=== PATIENT | male | born 1985 | race Two or more races ===

== ENCOUNTER → 2023-09-20 09:43 | Outpatient (BNVA) | payer OTHER, SELFPAY | PROVIDERS: Visit Provider Internal Medicine | DX: S39.012A Strain of muscle, fascia and tendon of lower back, initial encounter (principal); X50.0XXA Overexertion from strenuous movement or load, initial encounter | CPT/HCPCS: 99203 ==

== ENCOUNTER → 2023-09-24 13:14 | Outpatient (BNVA) | payer OTHER, SELFPAY | PROVIDERS: Visit Provider Physician Assistant | DX: S39.012A Strain of muscle, fascia and tendon of lower back, initial encounter (principal); X50.0XXA Overexertion from strenuous movement or load, initial encounter | CPT/HCPCS: 99214 ==

== ENCOUNTER → 2023-10-03 13:25 | Outpatient (BNVA) | payer OTHER, SELFPAY | PROVIDERS: Visit Provider Physician Assistant | DX: S39.012D Strain of muscle, fascia and tendon of lower back, subsequent encounter (principal); X50.0XXD Overexertion from strenuous movement or load, subsequent encounter | CPT/HCPCS: 99213 ==

== ENCOUNTER → 2024-07-21 11:22 | Outpatient (BNVA) | payer OTHER, SELFPAY | PROVIDERS: Visit Provider Physician Assistant Medical | DX: S39.012A Strain of muscle, fascia and tendon of lower back, initial encounter (principal); S33.6XXA Sprain of sacroiliac joint, initial encounter; X50.3XXA Overexertion from repetitive movements, initial encounter | CPT/HCPCS: 99203 ==

== ENCOUNTER → 2024-07-24 11:57 | Outpatient (BNVA) | payer OTHER, SELFPAY | PROVIDERS: Visit Provider Physician Assistant | DX: S39.012A Strain of muscle, fascia and tendon of lower back, initial encounter (principal); X50.3XXA Overexertion from repetitive movements, initial encounter; Z02.79 Encounter for issue of other medical certificate | CPT/HCPCS: 99213 ==

== ENCOUNTER → 2024-12-03 13:41 | Outpatient (BNVA) | payer OTHER, SELFPAY | PROVIDERS: Visit Provider Physician Assistant Medical | DX: G56.01 Carpal tunnel syndrome, right upper limb (principal) | CPT/HCPCS: 29125; 99203 ==

== ENCOUNTER → 2024-12-11 14:20 | Outpatient (BNVA) | payer OTHER, SELFPAY | PROVIDERS: Visit Provider Physician Assistant | DX: G56.01 Carpal tunnel syndrome, right upper limb (principal) | CPT/HCPCS: 99213 ==

== ENCOUNTER → 2024-12-25 14:18 | Outpatient (BNVA) | payer OTHER, SELFPAY | PROVIDERS: Visit Provider Physician Assistant | DX: G56.01 Carpal tunnel syndrome, right upper limb (principal) | CPT/HCPCS: 99214 ==

== ENCOUNTER 2025-01-06 14:00 | Outpatient (AMB) | payer OTHER, SELFPAY ==
--- NOTE | 2025-01-06 14:08 | MHC.OFFVIS ---
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 Patient reports a work injury on 12/03/24 - He reports pain, numbness and tingling in the right wrist that radiates up the arm and fingers. He was seen at the work connection for his symptoms where he was given naproxen, velcro wrist brace and was placed on light duty. Declined OT. 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 He has been wearing a velcro wrist brace for about 1 month now - this is helping him with his pain, but the pain and numbness resumes when the brace is taken off. He is at work right now on light duty with no use of the right arm. He is doing home exercies but continues to have stiffness. 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 Patient reports a work injury on 12/03/24 - He reports pain, numbness and tingling in the right wrist that radiates up the arm and fingers. He was seen at the work connection for his symptoms where he was given naproxen, velcro wrist brace and was placed on light duty. Declined OT. 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 He has been wearing a velcro wrist brace for about 1 month now - this is helping him with his pain, but the pain and numbness resumes when the brace is taken off. He is at work right now on light duty with no use of the right arm. He is doing home exercies but continues to have stiffness. [facility] Social History (Updated 01/06/25 @ 14:20 by Anna Marie Goss CMA) Current occupational status: employed Current occupation: Construction Review of Systems Const All systems reviewed & are unremarkable except as noted in HPI and below Physical Exam Extrem Other: Neuro: Normal sensation of the tips of all digits of bilateral hands in the office today No thenar or intrinsic wasting. Good APB muscle firing and good finger cross. Vascular: Capillary refill brisk. ROM: Patient can make a fist and extend all their digits. Patient does have full and intact range of motion of the left hand, however does report some discomfort in the wrist with resisted extension and passive flexion Skin: No lacerations or abrasions noted. General: No ecchymosis. No erythema or evidence of infection. [] Assessment & Plan Assessment & Plan (1) Stiffness of left hand joint: Code(s): M25.642 - Stiffness of left hand, not elsewhere classified Category: Medical (2) Numbness and tingling of left hand: Code(s): R20.0 - Anesthesia of skin; R20.2 - Paresthesia of skin Category: Medical Plan 1. Stiffness of left hand Patient is educated about this condition Patient is educated about the typical treatment course OT ordered for range of motion and strengthening of the left hand and wrist Patient is amenable to this plan Numbness and tingling of right hand Symptoms intermittent, daily, worse at night EMG and nerve conduction study ordered to assess the health of the nerves of the right upper extremity Patient will follow-up after EMG and nerve conduction study for results review and discussion of further treatment if indicated Patient is amenable to this plan Orders: Orders OT Evaluation and Treatment 01/06/25 M25.642 - Stiffness of left hand, not elsewhere classified, R20.0 - Anesthesia of skin, R20.2 - Paresthesia of skin NE electromyogram (EMG) 01/06/25 R20.0 - Anesthesia of skin, R20.2 - Paresthesia of skin NE nerve conduction velocity 01/06/25 R20.0 - Anesthesia of skin, R20.2 - Paresthesia of skin Coding Level of Care Code New Pt Level 3 (07236) Diagnoses Stiffness of left hand joint M25.642 Numbness and tingling of left hand R20.0; R20.2
== END 2025-01-06 14:39 | disposition home or self-care (01) ==
LOC: HO.HOS 14:01
DX: M25.642 Stiffness of left hand, not elsewhere classified (principal); R20.0 Anesthesia of skin; R20.2 Paresthesia of skin
CPT/HCPCS: 99203

== ENCOUNTER → 2025-01-06 14:00 | Outpatient (BNVA) | payer OTHER, SELFPAY | DX: M25.462 Effusion, left knee (principal); R20.0 Anesthesia of skin; R20.2 Paresthesia of skin | CPT/HCPCS: 99202 ==

== ENCOUNTER → 2025-01-08 14:14 | Outpatient (BNVA) | payer OTHER, SELFPAY | PROVIDERS: Visit Provider Physician Assistant | DX: G56.01 Carpal tunnel syndrome, right upper limb (principal) | CPT/HCPCS: 99213 ==

== ENCOUNTER 2025-02-18 15:32 | Outpatient (RCR) | payer OTHER, SELFPAY ==
--- NOTE | 2025-01-15 14:09 | MHC.OT.OEV ---
[address] [phone] F: [phone] Occupational Therapy Evaluation Patient Name: Marietta Payne Diagnosis: (R)wrist pain Date of Onset: Date of Surgery: Attending Provider: Momo Jin Prescribed Treatment: Follow Up Appointment: History of Current Condition: Patient is a 39 y/o Persian speaking (L)handed male with no significant PMHx to report who was referred to skilled OT for (R)wrist pain. Patient reported pain of the (R) wrist with no mechanism of injury. He stated he was at work and his hand became very painful and swollen. He showed his co-workers and he left work. He was seen by WC a was provided with wrist brace (has been wearing the brace of a month). He was then seen by Momo SANCHEZ who referred him to OT. He stats he has pain on the ulnar side of the wrist, middle of the volar wrist, RF and SF with numbness/tingling that is constant. He reports the pain as a 7/10 pain at rest and 10/10 during activity. He has a nerve conduction study scheduled for 02/09. He lives with and 4 children and reports his PLOF as (I)ADLs/IADls. 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 At this time he reports he is not able to use his hand it at all. He states he has no hobbies Significant Medical History: Precautions/Contraindications: Patient Goals: Hand Dominance: Left Observations: QuickDASH Score: Prior Level of Function and Occupation Self Care, Employment, Leisure: Works time clock repairer in construction (I)ADLS/ IADLs no hobbies Living Situation, Family and/or Social Support: lives with and 4 children Current Level of Function and Occupation Self Care, Employment, Leisure: mod (A)ADLs/IADLS Sleep: wakes because of the pain. Driving: is ok Vision: Balance: Pain Assessment Pain Score: 0 Pain Scale Used: Pain Location and Description: 7/10 at rest 10/10 during movement Aggravating Factors: Alleviating Factors: Naproxen Skin and Soft Tissue Assessment Skin and Soft Tissue: Comments: Skin intact No edema present at this time Observed mild muscle wasting of the radial side of dorsum of hand Nerve assessment Ulnar Nerve: Median Nerve: Radial Nerve: Comments: Sensory Assessment Temperature: Light Touch: Proprioception: Vibration: Comments: Edema Assessment Upper Extremity: Lower Extremity: Comments: Dexterity Assessment Dexterity: Comments: Special Tests Comments: (+)Carpal Tunnel (+)Wartenberg's sign (-)Froment's sign (+)Tineal's sing at the ulna styloid AROM(PROM) Strength Cervical Cervical Flexion: Cervical Extension: Cervical Lateral Flexion: Cervical Rotation: Comments: Shoulder Flexion: Extension: Abduction: Internal Rotation: External Rotation: Comments: Flexion: Extension: Abduction: Internal Rotation: External Rotation: Comments: Elbow Flexion: Extension: Pronation: Supination: Comments: Flexion: Extension: Pronation: Supination: Comments: Wrist Flexion: 75 Extension: 50 Ulnar Deviation: 35 Radial Deviation: 8 Comments: Flexion: Extension: Ulnar Deviation: Radial Deviation: Comments: Thumb Thumb CMC Flexion: Thumb MCP Flexion: Thumb IP Flexion: Radial Abduction: Palmar Abduction: Almond (Kapandji 0-10): 10 Comments: Painful when performing opposition Digits Index MCP: PIP: DIP: Long MCP: PIP: DIP: Ring MCP: PIP: DIP: Small MCP: PIP: DIP: Comments: WFLs- patient reports pain when making a fist Gross Grasp: (R)58lbs. (L)100lbs. Lateral Pinch: Two-Point Pinch: Three-Jaw Tripp: Comments: Patient Education Primary Language: Persian Senior Microsoft Net Developer Required: No Current Knowledge: Understands information with skills for self-management Teaching Method: Verbal Education Needs Identified on Evaluation: ADL's Equipment Use Exercise Pain How did patient/family demonstrate learning? Patient demonstrates Patient verbalizes Barriers to Learning: None Readiness for Learning: Accepting Who was educated? Patient Comments: Plan of Care Assessment: Based on initial OT evaluation patient presents with impaired strength, impaired ROM, numbness/tingling, pain, and impaired performance during self care tasks. Provocative testing revealed (+) Carpal Tunnel, (+)Wartenberg's sign, and (+)Tineal's sign at the ulna styloid. He indicating pain and numbness/tingling of the ulnar side of the wrist and hand. There also was noted muscle wasting of the dorsum of the hand near the thumb. The provocative testing, location of pain and observed muscle wasting may be indicating of Ulnar Tunnel Syndrome and will be treated accordingly; OT will continue to asses with on going sessions. Quick DASH= 81.8% indicating patients perceived impairment of UE during self care tasks. Due to the documented impairments it is recommended that patient receive skilled OT intervention in order for patient to achieve his PLOF. Thank you for your referral. STG Duration: 2 weeks Short Term Goals: Patient will report 8/10 pain in (R)wrist Patient will be (I)with wear schedule of orthosis Patent increase (R) RD to 18* Patient will increase (R)outpatient interviewing clerk strength to 65lbs. LTG Duration: 4 weeks Mcfp Goals: Patient will report 1/10 pain in (R)wrist Patient will be have RD WFLs Patient will decrease Quick DASH score to 40% or less Patient will be (I) with HEP Frequency and Duration: The patient will be seen 2x a week for 4 weeks Treatment Plan: Therapeutic Exercise Therapeutic Activity Home Exercise Program Splinting Neuro Re-ed Patient Education Desensitization/Sensory Re-ed Edema Control ADL Training Ultrasound NMES Iontophoresis Paraffin Fluidotherapy MHP Cold Packs Joint Mobilization Soft Tissue Mobilization Kinesiotaping Other (see comments) Skilled OT eval and treat Electronically Signed By: Nya Sanchez OTYessica/L, CLT Reviewed/agree with student documentation: Therapist: Please sign and return to therapist, Thank you for your referral.
--- NOTE | 2025-02-18 16:12 | MHC.OT.DC ---
[facility] Office [address] [phone] F: [phone] F: [phone] Occupational Therapy Discharge Note Patient Name: Marietta Payne Provider: Momo Jin Diagnosis: (R)wrist pain Date of Surgery: Date of Evaluation: 01/14/25 Date of Discharge: Treatments to Date: 7 Cancellations to Date: No Shows to Date: Discharge Status: Discharge Summary: Patient is d/c'd as patient has plateaued during as he reports continued pain and numbness. He has a nerve conduction test scheduled for next month. Patient will be re assessed by physician and should he require further OT intervention he will contact [facility]. Thank you for your referral. Electronically Signed By: DAY Warner/Lennox, TRACEYT Reviewed/agree with student documentation: Therapist: Please Sign and return to therapist, thank you for your referral.
== END 2025-02-18 16:13 | disposition home or self-care (01) ==
LOC: HO.OT 15:32
DX: M25.642 Stiffness of left hand, not elsewhere classified (principal); R20.0 Anesthesia of skin; R20.2 Paresthesia of skin
CPT/HCPCS: 97110; 97112; 97165; 97535

== ENCOUNTER 2025-03-25 08:54 | Outpatient (REF) | payer OTHER, SELFPAY ==
--- OUTSIDE RECORDS SUMMARY | 2025-03-25 09:36 | XMS_ITS | Clinical Summary ---
Author Organization [facility] Address [address] [place] [address] Care Team Providers Care Dehydrogenation Converter Helper Name Role Phone Unavailable Primary Care Provider Unavailabl e Encounters Date Type Department Care Team Description 01/19/2025 Population Health Risk Score [facility] (C3) Department [address] [place] [id number] Provider, Population Health Generic from Last 3 Months Social History Tobacco Use Types Packs/Day Years Used Date Smoking Tobacco: Never Assessed Sex and Gender Information Value Date Recorded Sex Assigned at Not on file Legal Sex Male 9:24 PM EDT Gender Identity Not on file Sexual Orientation Not on file Plan of Treatment Health Maintenance Due Date Last Done Comments Depression Screening 1983 HIV Screening 1983 Lipid Panel 1983 SDOH Screening 1983 Disability Screening 1983 Alcohol/Substance Use Screening 1995 Tobacco Screening 1995 Family Planning (PISQ) 10/03/1998 HPV Vaccines (1 - Male 3-dos e series) 10/03/1998 Hepatitis C Screening 10/03/2001 DTaP/Tdap/Td Vaccines (1 - Tdap) 10/03/2002 Hepatitis B Vaccines (1 of 3 - 19+ 3-dose series) 10/03/2002 COVID-19 Vaccine (1 - 2023-2 5 season) 2025 Influenza Vaccine (#1) 2025 Zoster Vaccines (1 of 2) 10/03/2033 RSV Patients and Pa tients Aged 60 years or older (1 - 1-dose 75+ series) 10/03/2058 HIB Vaccines Aged Out No longer eligi ble based on patient's age to complete this topic Hepatitis A Vaccines Aged Out No long er eligible based on patient's age to complete this topic IPV Vaccines Aged Out No longer eligi ble based on patient's age to complete this topic Meningococcal B Vaccine Aged Out No l onger eligible based on patient's age to complete this topic Meningococcal Vaccine Aged Out No rola vinay eligible based on patient's age to complete this topic Pneumococcal Vaccine: Pediat rics (0 to 5 Years) and At-Risk Patients (6 to 49) Years Aged Out No longer eligible b ased on patient's age to complete this topic RSV under 20 months Aged Out No longe r eligible based on patient's age to complete this topic Rotavirus Vaccines Aged Out No longer eligible based on patient's age to complete this topic
--- OUTSIDE RECORDS SUMMARY | 2025-03-25 09:36 | XMS_ITS | Clinical Summary ---
Author Organization [facility] Address [address] [place] [address] Phone Care Team Providers Care Hearing Impaired Itinerant Teacher Name Role Phone Physician, No Pcp Primary Care Provider Unavaila ble Allergies No known active allergies Encounters Date Type Department Care Team Description 02/22/2025 5:20 PM EDT - 02/22/2025 8:09 PM EDT Emergency [facility] Emergency [address] [place] [address] Discharge Disposition: Left Against Medical Advice from Last 3 Months Medical History Medical History Date Comments Known health problems: none Social History Tobacco Use Types Packs/Day Years Used Date Smoking Tobacco: Never Assessed Sex and Gender Information Value Date Recorded Sex Assigned at Not on file Legal Sex Male 5:19 PM EDT Gender Identity Not on file Sexual Orientation Not on file Obstetrics History Last Filed Vital Signs Vital Sign Reading Time Taken Comments Blood Pressure 134/98 02/22/2025 5:34 PM EDT Pulse 90 02/22/2025 5:34 PM EDT Temperature 37 C (98.6 F) 02/22/2025 5:34 PM EDT Respiratory Rate 20 02/22/2025 5:34 PM EDT Oxygen Saturation 98% 02/22/2025 5:34 PM EDT Inhaled Oxygen Concentration - - Weight 103 kg (227 lb 1.2 oz) 02/22/2025 5:34 PM EDT Height 167 cm (5' 5.75 ) 02/22/2025 5:34 PM EDT Body Mass Index 36.93 02/22/2025 5:34 PM EDT Plan of Treatment Health Maintenance Due Date Last Done Comments Hepatitis B Vaccines (3 of 3 - 19+ 3-dose series) 04/11/2022 02/14/2022, 01/13/2021 Depression Screening 07/01/2024 Cholesterol Screening (Lipid Panel) 02/22/2025 HIV Screening 02/22/2025 Social Influencers of Health Screening 02/22/2025 COVID-19 Vaccine (3 - 2024-2 6 season) 2025 08/07/2022, 07/11/2022 Influenza Vaccine (#1) 2025 07/11/2022 DTaP,Tdap,and Td Vaccines (3 - Td or Tdap) 04/20/2032 04/20/2022, 01/13/2021 RSV Immunization Adult Patients (1 - 1-dose 75+ series) 10/03/2058 MMR Vaccines Aged Out 02/14/2021, 01/13/2021 No longer eligible based on patient's age to complete this topic Hepatitis C Screening Completed 04/20/2022 Pneumococcal Vaccine: Pediatrics (0 to 5 Years) and At-Risk Patients (6 to 49 Years) Aged Out 04/20/2022 No longer eligible b ased on patient's age to complete this topic HIB Vaccines Aged Out No longer eligi ble based on patient's age to complete this topic HPV Vaccines Aged Out No longer eligi ble based on patient's age to complete this topic Hepatitis A Vaccines Aged Out No long er eligible based on patient's age to complete this topic IPV Vaccines Aged Out No longer eligi ble based on patient's age to complete this topic Meningococcal ACWY Vaccine Aged Out N o longer eligible based on patient's age to complete this topic Meningococcal B Vaccine Aged Out No l onger eligible based on patient's age to complete this topic RSV Immunization Patients Under 20 months Aged Out No longer eligible b ased on patient's age to complete this topic Varicella Vaccines Aged Out No longer eligible based on patient's age to complete this topic Procedures Procedure Name Priority Date/Time Associated Diagnosis Comments ECG ANNOTATED 02/24/2025 ECG 12-LEAD STAT 02/22/2025 5:31 PM EDT from Last 3 Months Results * ECG-Annotated (02/24/2025) us Provider Onbase MD ECG ORDERABLES Final Result * ECG 12 lead (02/22/2025 5:31 PM EDT) Ventricular Rate ECG 93 BPM GEMUSE Atrial Rate 93 BPM GEMUSE P-R Interval 160 ms GEMUSE QRS Duration 104 ms GEMUSE Q-T Interval 362 ms GEMUSE QTc 450 ms GEMUSE P Wave [place] 70 degrees GEMUSE R [place] 50 degrees GEMUSE T [place] 37 degrees GEMUSE ECG Interpretation Normal sinus rhythm Normal ECG No previous ECGs available Confirmed by EVONNE BAZZI ([id number]) on 02/23/2025 8:15:39 AM GEMUSE 02/22/2025 5:31 PM EDT 02/23/2025 8:15 AM EDT us Tonio Johnston MD ECG ORDERABLES Final Result GEMUSE from Last 3 Months Insurance MEDICAID - [place] Care Teams Hearing Impaired Itinerant Teacher Relationship Specialty Start Date End Date Physician, No Pcp PCP - General 02/22/25
--- OUTSIDE RECORDS SUMMARY | 2025-03-25 09:36 | XMS_ITS | Clinical Summary ---
Author Organization [facility] Address [address] [place] [address] Care Team Providers Care Booster Pump Oiler Name Role Phone Edel Mercado TIME CHECKER-C Primary Care Provider [phone] Source Comments PLEASE NOTE, if this patient is a minor, it may be UNLAWFUL to discuss sensitive information that is contained in these records (such as FAMILY PLANNING, MENTAL HEALTH or SUBSTANCE ABUSE) with the minor patient's parent or other person without the patient's specific authorization.[facility] Allergies No known active allergies Medications No known medications Active Problems Problem Noted Date Diagnosed Date Food insecurity 11/26/2023 Financial difficulties 11/26/2023 Housing instability 11/26/2023 Lack of access to transportation 11/26/2023 Class 2 obesity due to exces s calories without serious comorbidity with body mass index (BMI) of 38.0 to 38.9 in adult 10/25/2022 Chronic nasal congestion 04/20/2022 Resolved Problems Problem Noted Date Diagnosed Date Resolved Date Tobacco use 04/20/2022 10/25/2022 Immunizations Immunization Administration Dates Next Due Flu, Preservative Free 07/11/2022 Hep B, Adult/Adol ([id number]/RECOMBIVAX-AD ULT) 02/14/2022,01/13/2021 MMR (MMR II/Priorix) 02/14/2021,01/13/2021 PNEUMOCOCCAL CONJUGATE PCV 20 (Prevnar 20) 04/20 Pfizer COVID vaccineTED gray cap, 12+ 0 08/07/2022,07/11/2022 TDAP 04/20/2022 Td (adult) unspecified 01/13/2021 Family History Medical History Relation Name Comments Heart Problems Mother Relation Name Status Comments Mother Social History Tobacco Use Types Packs/Day Years Used Date Smoking Tobacco: Former Cigarettes Passive Smoke Exposure: Never Smokeless Tobacco: Never Tobacco Cessation:Counseling Given: Yes Comments:May 2022 Alcohol Use Standard Drinks/Week Comments Never 0 (1 standard drink = 0.6 oz pur e alcohol) Social Connections Answer Date Recorded Connectedness 2 11/26/2023 Financial Resource Strain Answer Date R ecorded Financial Resource Strain 2 2023 Stress Answer Date Recorded Stress 1 11/26/2023 Physical Activity Answer Date Recorded Physical Activity 0 11/26/2023 Food Insecurity Answer Date Recorded Food 2 11/26/2023 Transportation Needs Answer Date Record ed Transportation 1 11/26/2023 Housing Stability Answer Date Recorded Housing 2 11/26/2023 Safety and Environment Answer Date Kalen rded Safety 1 11/26/2023 Utilities Answer Date Recorded Utilities 2 11/26/2023 Employment Answer Date Recorded Stress 1 11/26/2023 Sex and Gender Information Value Date Recorded Sex Assigned at Male 04/20/2022 6:28 PM PDT Legal Sex Male 8:20 AM PDT Gender Identity Male 04/20/2022 6:28 PM PDT Sexual Orientation Straight 04/20/2022 6: 28 PM PDT Last Filed Vital Signs Vital Sign Reading Time Taken Comments Blood Pressure 120/80 10/25/2022 2:20 PM EDT Pulse 85 10/25/2022 2:20 PM EDT Temperature 36.8 C (98.2 F) 10/25/2022 2:20 PM EDT Respiratory Rate 16 10/25/2022 2:20 PM EDT Oxygen Saturation 98% 10/25/2022 2:20 PM EDT Inhaled Oxygen Concentration - - Weight 101.2 kg (223 lb 1.6 oz) 10/25/2022 2:20 PM EDT Height 162.6 cm (5' 4 ) 10/25/2022 2:20 PM EDT Body Mass Index 38.3 10/25/2022 2:20 PM EDT Plan of Treatment Health Maintenance Due Date Last Done Comments Anxiety Screening 1985 Diabetes Screening 1983 Lipid Screening 1983 Imm-HPV (1 - 3-dose SCDM series) 10/03/2010 Hypertension Screening (#1) 10/25/2023 Annual Wellness (Adult): Ind icated (All Coverage) 10/26/2023 10/25/2022 Tobacco Screening 10/26/2023 10/25/2022 Alcohol and Drug Screen 07/01/2024 07/11/2022 Depression Annual Screen 07/01/2024 07/11/2022 [id number] (3 season) 2025 023, 07/11/2022 Imm-Influenza (#1) 2025 07/11/2022 Imm-DTaP/Tdap/Td (2 - Td or Tdap) 04/20/2032 022, 01/13/2021 Imm-Hepatitis B Discontinued 02/14/2022, 01/29, 01/13/2021 HIV Screening Completed 04/20/2022 Hepatitis C Screening Completed 04/20/2022 Procedures Procedure Name Priority Date/Time Associated Diagnosis Comments HIV 1/2 AG & AB W/RFLX (4TH GEN) Routine 04/20/2022 2:47 PM EDT Refugee health examination HEPATITIS C AB W/RFLX HCV RNA, QT, RT PCR Routine 04/20/2022 2:47 PM EDT Refugee health examination from Last 3 Months or Most Recently Relevant to Health Maintenance Results * HEP C AB W/RLFX HCV RNA (for all adults >/= 18 yrs, all women, and all unaccompanied minors) (04/20/2022 2:47 PM EDT) HEPATITIS C ANTIBODY NON-REACT NU NON-REACT NU [facility] SIGNAL TO CUT-OFF 0.10 <1.00 [facility] Comment: HCV antibody was non-reactive. There is no laboratory evidence of HCV infection. In most cases, no further action is required. However, if recent HCV exposure is suspected, a test for HCV RNA (test code 25169) is suggested. For additional information please refer to http://education.[employer]/faq/TEW69p9 (This link is being provided for informational/ educational purposes only.) Blood Blood / Unknown 04/20/2022 2 :47 PM EDT 04/20/2022 2:48 PM EDT Narrative [facility] - 04/26/2022 10:58 PM EDT COLLECTION KIT GIVEN TO PATIENT. PATIENT ADVISED TO RETURN. us Norah Goel PA-C LAB - BLOOD DRAW Edited Resu lt - Final Performing Organization Address [facility]/ZIP Co de Phone Number [facility] [address] [address], [employer] [facility] [address] [address] * HIV 1/2 AG & AB W/RFLX (Required for 13 yrs to 64 yrs) (04/20/2022 2:47 PM EDT) HIV AG/AB, 4TH GEN NON-REAC TIVE NON-REAC TIVE [employer] Comment: HIV-1 antigen and HIV-1/HIV-2 antibodies were not detected. There is no laboratory evidence of HIV infection. PLEASE NOTE: This information has been disclosed to you from records whose confidentiality may be protected by state law. If your state requires such protection, then the state law prohibits you from making any further disclosure of the information without the specific written consent of the person to whom it pertains, or as otherwise permitted by law. A general authorization for the release of medical or other information is NOT sufficient for this purpose. For additional information please refer to http://education.V[employer]emob/faq/QSR693 (This link is being provided for informational/ educational purposes only.) The performance of this assay has not been clinically validated in patients less than 2 years old. Blood Blood / Unknown 04/20/2022 2 :47 PM EDT 04/20/2022 2:48 PM EDT Narrative [facility] - 04/26/2022 10:58 PM EDT COLLECTION KIT GIVEN TO PATIENT. PATIENT ADVISED TO RETURN. us Norah Goel PA-C LAB - BLOOD DRAW Final Resul t Performing Organization Address [facility]/ZIP Co de Phone Number [employer] [facility] [address] [address], [employer] [facility] [address] [address] from Last 3 Months or Most Recently Relevant to Health Maintenance Insurance [address] [employer] Care Teams Booster Pump Oiler Relationship Specialty Start Date End Date Edel Mercado FNP-C [address] [place] [address] PCP - General Internal Medicine 07/09/23
--- NOTE | 2025-03-25 09:48 | EMG_ITS ---
Chief complaint: Right hand numbness and tingling in ulnar distribution Reason for referral: Evaluate for Ulnar neuropathy, CTS and radiculopathy Referred by: LAURA Osborne Procedure done: Right upper extremity NCS/ EMG Right median and ulnar motor and sensory studies were performed right radial sensory and median lateral antecubital brachial sensory studies were performed motor F responses or obtained and EMG needle examination was performed. Right median distal motor latency is significantly prolonged with normal conduction velocities and amplitude. Median mixed distal latencies prolonged with slow conduction velocity in 30s. Otherwise no significant abnormalities noted specially also no abnormalities noted in ulnar study. Needle examination revealed fibs and positive sharp waves and abductor pollicis brevis. Impression: Bsqj-pn-hcvjiycf right median neuropathy across carpal tunnel with no evidence of ulnar neuropathy MTDD
== END 2025-03-25 08:55 | disposition home or self-care (01) ==
LOC: HO.NEURO 08:54
DX: G56.11 Other lesions of median nerve, right upper limb (principal); R20.0 Anesthesia of skin; R20.2 Paresthesia of skin
CPT/HCPCS: 95886; 95911

== ENCOUNTER → 2025-03-25 09:48 | Outpatient (BNV) | payer OTHER, SELFPAY | PROVIDERS: Visit Provider Psychiatry & Neurology Neurology | DX: G56.01 Carpal tunnel syndrome, right upper limb (principal) | CPT/HCPCS: 95886; 95910 ==

== ENCOUNTER 2025-04-02 13:40 | Outpatient (AMB) | payer OTHER, SELFPAY ==
--- NOTE | 2025-04-02 13:46 | MHC.OFFVIS ---
Intake Visit Reasons: OV: Right hand EMG review Intake Note: Marietta is a 39 year old right hand dominant male who speaks Italian, presents today as a follow up visit for Right Wrist Pain. Patient reports this is a work injury from 12/03/24. At his last visit he was sent to have a EMG study and is here for results. Impression: Odyq-xb-jiullzmi right median neuropathy across carpal tunnel with no evidence of ulnar neuropathy Biotech Production Specialist Required: Yes Biotech Production Specialist Services: Biotech Production Specialist Present Biotech Production Specialist Name: Lavern ID#[id number] Allergies No Known Allergies Allergy (Verified 04/02/25 13:48) HPI HPI OV: Right hand EMG review: Details: Marietta is a 39 year old right hand dominant male who speaks Italian, presents today as a follow up visit for Right Wrist Pain. Patient reports this is a work injury from 12/03/24. At his last visit he was sent to have a EMG study and is here for results. Patient is initially apprehensive about surgery. Impression: Gujf-nf-udkdnygy right median neuropathy across carpal tunnel with no evidence of ulnar neuropathy PFSH Social History Current occupational status: employed Current occupation: Construction Review of Systems Const All systems reviewed & are unremarkable except as noted in HPI and below Physical Exam Extrem Other: Neuro: Normal sensation of the tips of all digits of bilateral hands in the office today No thenar or intrinsic wasting. Good APB muscle firing and good finger cross. Vascular: Capillary refill brisk. ROM: Patient can make a fist and extend all their digits. Patient does have full and intact range of motion of the left hand, however does report some discomfort in the wrist with resisted extension and passive flexion Skin: No lacerations or abrasions noted. General: No ecchymosis. No erythema or evidence of infection. Assessment & Plan Assessment & Plan (1) Right carpal tunnel syndrome: Code(s): G56.01 - Carpal tunnel syndrome, right upper limb Category: Medical Plan 1. Right carpal tunnel syndrome Symptoms intermittent, daily, worse at night I educated the patient about the condition. I discussed both operative and nonoperative treatment options. The patient would like to proceed with surgery. The risks and benefits of operative treatment were discussed with the patient and the patient wishes to proceed with surgery. These risks include, but are not limited to, risk of damage to blood vessels, nerves, tendons, infection, recurrence, incomplete relief of preoperative symptoms, persistent pain, possible need for further surgery, and the risks associated with regional blocks and/or anesthesia. Plan is to take the patient to the operating room at some point in the next few weeks for the following procedures: 1. Right carpal tunnel release under local All of the preoperative paperwork including the consent was discussed today. All of the patient's questions were answered in the clinic today. The patient understands that they will be in contact with our surgical device sales representative to discuss scheduling their procedure. Patient denies diabetes, blood thinners, asthma, heart issues, lung issues, kidney issues, or current smoking. Coding Level of Care Code Est Pt Level 4 (11315) Diagnoses Right carpal tunnel syndrome G56.01
--- OUTSIDE RECORDS SUMMARY | 2025-04-02 13:54 | XMS_ITS | Clinical Summary ---
Author Organization [facility] Address [address] [place] [address] Phone Care Team Providers Care Pewter Fabricator Name Role Phone Physician, No Pcp Primary Care Provider Unavaila ble Allergies No known active allergies Encounters Date Type Department Care Team Description 02/22/2025 5:20 PM EDT - 02/22/2025 8:[address] [facility] Emergency [address] [place] [address] Discharge Disposition: Left Against Medical [...] GEMUSE QTc 450 ms GEMUSE P Wave Vincent 70 degrees GEMUSE R Vincent 50 degrees GEMUSE T Vincent 37 degrees GEMUSE ECG Interpretation Normal sinus rhythm Normal ECG No previous ECGs available Confirmed by EVONNE BAZZI ([id number]) on 02/23/2025 8:15:39 AM GEMUSE 02/22/2025 5:31 PM EDT 02/23/2025 8:15 AM EDT us Tonio Johnston MD ECG ORDERABLES Final Result GEMUSE from Last 3 Months Insurance MEDICAID - [place] Care Teams Pewter Fabricator Relationship Specialty Start Date End Date Physician, No Pcp PCP - General 02/22/25
--- OUTSIDE RECORDS SUMMARY | 2025-04-02 13:54 | XMS_ITS | Clinical Summary ---
Author Organization [facility] Address [address] [facility] 7[address] [place] [address] Care Team Providers Care Animal Nutrition Teacher Name Role Phone Unavailable Primary Care Provider Unavailabl e Encounters Date Type Department Care Team Description 01/19/2025 Population Health Risk Score [facility] (C3) Department [address] [facility] [address] [place] [id number] Provider, Population Health Generic from Last 3 [...]
--- OUTSIDE RECORDS SUMMARY | 2025-04-02 13:54 | XMS_ITS | Clinical Summary ---
Author Organization [facility] Address [address] [place] [address] Care Team Providers Care Glass Ribbon Machine Operator Assistant Name Role Phone Edel Mercado EDITORIAL CARTOONIST-C Primary Care Provider [phone] Source Comments PLEASE NOTE, if this patient [...] Flu, Preservative Free 07/11/2022 Hep B, Adult/Adol ([id number]/RECOMBIVAX-AD ULT) 02/14/2022,01/13/2021 MMR (MMR II/Priorix) 02/14/2021,01/13/2021 PNEUMOCOCCAL [...] 07/01/2024 07/11/2022 Depression Annual Screen 07/01/2024 07/11/2022 [id number] (3 season) 2025 023, 07/11/2022 Imm-Influenza (#1) [...] HEPATITIS C ANTIBODY NON-REACT NU NON-REACT NU [facility] SIGNAL TO CUT-OFF 0.10 <1.00 [facility] Comment: HCV antibody was non-reactive. There is no laboratory evidence of HCV infection. In most cases, no further action is required. However, if recent HCV exposure is suspected, a test for HCV RNA (test code 72163) is suggested. For additional information please refer to http://education.[employer]/faq/TAU71r5 (This link is being provided for informational/ educational purposes only.) Blood Blood / Unknown 04/20/2022 2 :47 PM EDT 04/20/2022 2:48 PM EDT Narrative [facility] - 04/26/2022 10:58 PM EDT COLLECTION KIT GIVEN TO PATIENT. PATIENT ADVISED TO RETURN. us Norah Goel PA-C LAB - BLOOD DRAW Edited Resu lt - Final Performing Organization Address [facility]/ZIP Co de Phone Number [facility] [address] [address], [employer] [facility] [address] [address] * HIV 1/2 AG & AB W/RFLX (Required for 13 yrs to 64 yrs) (04/20/2022 2:47 PM EDT) HIV AG/AB, 4TH GEN NON-REAC TIVE NON-REAC TIVE [facility] Comment: HIV-1 antigen and HIV-1/HIV-2 antibodies [...] purpose. For additional information please refer to http://education.[employer]/faq/QHF351 (This link is being provided for informational/ educational purposes only.) The performance of this assay has not been clinically validated in patients less than 2 years old. Blood Blood / Unknown 04/20/2022 2 :47 PM EDT 04/20/2022 2:48 PM EDT Narrative [facility] - 04/26/2022 10:58 PM EDT COLLECTION KIT GIVEN TO PATIENT. PATIENT ADVISED TO RETURN. us Norah Goel PA-C LAB - BLOOD DRAW Final Resul t Performing Organization Address [facility]/ZIP Co de Phone Number [facility] [address] [address], [employer] [facility] [address] [address] from Last 3 Months or Most Recently Relevant to Health Maintenance Insurance [address] [employer] Care Teams Glass Ribbon Machine Operator Assistant Relationship Specialty Start Date End Date Edel Mercado FNP-C [address] [place] [address] PCP - General Internal Medicine 07/09/23
== END 2025-04-02 14:24 | disposition home or self-care (01) ==
LOC: HO.HOS 13:41
DX: G56.01 Carpal tunnel syndrome, right upper limb (principal)
CPT/HCPCS: 99214

== ENCOUNTER → 2025-04-02 13:40 | Outpatient (BNVA) | payer OTHER, SELFPAY | DX: Z01.818 Encounter for other preprocedural examination (principal); G56.01 Carpal tunnel syndrome, right upper limb | CPT/HCPCS: 99212 ==

== ENCOUNTER 2025-05-17 06:20 | Day surgery (SDC) | payer OTHER, SELFPAY ==
--- OUTSIDE RECORDS SUMMARY | 2025-04-20 17:16 | XMS_ITS | Clinical Summary ---
Author Organization [employer] [facility] Address [address] [facility] [address] [place] [address] Care Team Providers Care Orderly Name Role Phone Unavailable Primary Care Provider Unavailabl e Encounters Date Type Department Care Team Description 01/19/2025 Population Health Risk Score [facility] (C3) Department [address] [facility] [address] [place] [id number] Provider, Population Health Generic from Last 3 [...]
[2025-05-17 06:41] VITALS: BP 128/87; PULSE 76; RESP 16; TEMP 35.6; O2SAT 97; BMI 40.3
--- NOTE | 2025-05-17 07:44 | MHC.SHP ---
Pre-Procedural Eval Section A - 24 Hr Update-Section A only Date of Service: 05/17/25 The patient is an INPATIENT: No Changes since office visit: No Cold of Flu in the past 2 weeks, No New Medical Problems, No Changes in Medication and No Patient answered all questions The patient has been examined within 24 hours of the surgical procedure. The History & Physical has been completed within 30 days and I have reviewed it.: Yes Section B - Complete if H&P > 30 days Chief Complaint: Carpal tunnel syndrome, right upper limb Allergies: Allergies Allergy/AdvReac Type Severity Reaction Status Date / Time No Known Allergies Allergy Verified 04/02/25 13:48 Plan Diagnosis/Plan: Unchanged I have reviewed the history and physical and performed a pertinent physical examination on my patient. No changes have occurred unless specified. Time Spent With Patient Time: Total time managing care of this patient today ____ minutes.
--- NOTE | 2025-05-17 07:45 | W.PM.OPN ---
Operative Note Operative Note Date of Service: 05/17/25 Narrative: Preop diagnosis: 1. Right Carpal tunnel syndrome Postop diagnosis: same Procedure: 1. Right Carpal tunnel release Surgeon: Bailey Mann MD Clinical Reimbursement Specialist: None Anesthesia: local block using 1% lidocaine with epinephrine Findings: Thickened transverse carpal ligament. EBL: Less than 5 mL Specimens: None Complications: None Disposition: Brought to recovery room in stable condition Plan: Follow-up for 10-14 days for wound check and suture removal Indications: The patient is 39 years old, with right carpal tunnel syndrome that has been unresponsive to nonoperative management. The risks and benefits of operative treatment including but not limited to risk of damage to blood vessels, nerves, tendons, infection, persistent pain, persistent symptoms, or possible need for additional surgery were discussed with the patient and the patient wishes to proceed with surgery. Procedure: Once consent was obtained a local block was performed using a combination of 1% lidocaine with epinephrine. The patient was then brought back to the operating suite and placed on the operative table in supine position. The right upper extremity was prepped and draped in a standard surgical fashion. Once assured that we had a good block, a 2.0 cm longitudinal incision was made centered over the carpal tunnel. The incision was made through the skin to the subcutaneous tissues using a #15 blade. Dissection was made down to the level of the transverse carpal ligament with care being taken to protect the palmar cutaneous nerve. Once the transverse carpal ligament was clearly visualized, a longitudinal incision was made in the transverse carpal ligament 1st using a #15 blade, then using tenotomy scissors under direct visualization. Care was taken to look for and protect the motor branch of the median nerve when seen in this area. Once satisfied with our carpal tunnel release the wound was copiously irrigated with normal saline and hemostasis was obtained with a brief period of local pressure. The skin edges were reapproximated with some 5.0 nylon suture material and a sterile dressing was applied. The patient appears to have tolerated the procedure well and with no complications. All digits were well vascularized at the conclusion of the case.
[2025-05-17 08:23] VITALS: BP 124/87; PULSE 76; RESP 16; TEMP 36.1; O2SAT 96
== END 2025-05-17 08:32 | disposition home or self-care (01) ==
PROVIDERS: Visit Provider Orthopaedic Surgery
PROC: (CPT 64721; principal; 2025-05-17 07:30)
DX: G56.01 Carpal tunnel syndrome, right upper limb (principal); M25.531 Pain in right wrist
CPT/HCPCS: 64721; J0165; J2003

== ENCOUNTER → 2025-05-17 06:20 | Outpatient (BNV) | payer OTHER, SELFPAY | PROVIDERS: Visit Provider Orthopaedic Surgery | DX: G56.01 Carpal tunnel syndrome, right upper limb (principal) | CPT/HCPCS: 64721 ==

== ENCOUNTER 2025-06-01 12:58 | Outpatient (AMB) | payer OTHER, SELFPAY ==
[2025-06-01 13:00] VITALS: BMI 40.2
--- NOTE | 2025-06-01 13:00 | A.OFFVIS_ITS ---
Vital Signs 06/01/25 13:00 Height 5 ft 4 in Weight 234 lb BMI 40.2 Intake Visit Reasons: PO RT CTR 05/17/25 AR Intake Note: Marietta is a 39 year old right hand dominant male who presents today for a Post- Operative Visit status post Right Carpal Tunnel Release performed by Dr. Mann on 05/17/25. Patient reports he continues having numbness on his index finger. He has d iscontinued his pain medication. Of note, patient did not remove his post-op dressing 5 days after surgery. Dressing removed today. Sutures removed and steri strips applied. Capture Manager Required: Yes Capture Manager Language: Latvian Capture Manager Name: [id number] Allergies No Known Allergies Allergy (Verified 06/01/25 13:00) HPI HPI PO RT CTR 05/17/25 AR: Details: Marietta is a 39 year old right hand dominant male who presents today for a Post- Operative Visit status post Right Carpal Tunnel Release performed by Dr. Mann on 05/17/25. Patient reports he continues having numbness on his index finger. He has discontinued his pain medication. Of note, patient did not remove his post-op dressing 5 days after surgery. Dressing removed today. Sutures removed and steri strips applied. [facility] Social History Current occupational status: employed Current occupation: Construction Review of Systems Const All systems reviewed & are unremarkable except as noted in HPI and below Physical Exam Vital Signs: BMI result Body Mass Index 40.2 Extrem Other: Neuro: Normal sensation of the tips of all digits of bilateral hands in the office today No thenar or intrinsic wasting. Good APB muscle firing and good finger cross. Vascular: Capillary refill brisk. ROM: Patient can make a fist and extend all their digits. Patient does have full and intact range of motion of the left hand, however does report some discomfort in the wrist with resisted extension and passive flexion Skin: Well approximated and well healing incision site noted on volar right wrist No lacerations or abrasions noted. General: No ecchymosis. No erythema or evidence of infection. Assessment & Plan Assessment & Plan (1) Right carpal tunnel syndrome: Code(s): G56.01 - Carpal tunnel syndrome, right upper limb Category: Medical Plan 1. Status post right carpal tunnel release DOS 05/17/2025 With good symptomatic resolution postoperatively Patient appears to be recovering well postoperatively Patient is educated about the typical recovery course No under water times one-week, 2 lb weight limit x2 weeks Patient appears to be recovering very well, and requires no further acute follow-up with us postoperatively Patient is educated and worrisome signs and symptoms, and should call us if they experience any of these, including but not limited to redness, swelling, increased pain, and discharge Patient understands this and is amenable to this plan Coding Level of Care Code Global (90965) Diagnoses Right carpal tunnel syndrome G56.01
--- OUTSIDE RECORDS SUMMARY | 2025-06-01 14:52 | XMS_ITS | Clinical Summary ---
Author Organization [facility] Address [address] [place] [address] Phone Care Team Providers Care Partner Name Role Phone Physician, No Pcp Primary Care Provider Unavaila ble Allergies No known active allergies Medical History Medical History Date Comments Known [...] Health Maintenance Due Date Last Done Comments HPV Vaccines (1 - 3-dose SCD M series) 10/03/2010 Hepatitis B Vaccines (3 of 3 - [...] on patient's age to complete this topic Insurance [place] - [place] [facility] Care Teams Partner Relationship Specialty Start Date End Date Physician, No Pcp PCP - General 02/22/25
--- OUTSIDE RECORDS SUMMARY | 2025-06-01 14:52 | XMS_ITS | Clinical Summary ---
Author Organization [employer] Address [address] [place] [address] Care Team Providers Care Supervisor Steffen House Name Role Phone Unavailable Primary Care Provider Unavailabl e Social History Tobacco Use Types Packs/Day Years [...] 3-dose series) 10/03/2002 COVID-19 Vaccine (1 - 2024-2 6 season) 2025 Influenza Vaccine (#1) 2025 Zoster [...]
== END 2025-06-01 13:28 | disposition home or self-care (01) ==
LOC: HO.HOS 12:59
DX: G56.01 Carpal tunnel syndrome, right upper limb (principal)
CPT/HCPCS: 99024

== ENCOUNTER → 2025-06-01 12:58 | Outpatient (BNVA) | payer OTHER, SELFPAY | DX: Z47.89 Encounter for other orthopedic aftercare (principal); G56.01 Carpal tunnel syndrome, right upper limb | CPT/HCPCS: 99212 ==